=== PATIENT | male | born 1990 | race Caucasian/White ===

== ENCOUNTER 2016-07-04 09:10 | Emergency (ER) | payer OTHER ==
--- NOTE | 2016-07-04 09:24 | ED GI/GU/ABDOMINAL COMPLAINT ---
History of Present Illness General Chief Complaint: Abdominal Pain/Flank Pain Stated Complaint: ABD PAIN Source: patient Exam Limitations: no limitations Vital Signs & Intake/Output Vital Signs & Intake/Output Vital Signs Date Time Temp Pulse Resp B/P Pulse O2 O2 Flow FiO2 Ox Delivery Rate 07/04 1158 97.0 70 18 130/70 98 Room Air 07/04 0915 97.0 64 18 152/88 98 Room Air Allergies Coded Allergies: No Known Allergies (07/04/16) Reconcile Medications Ketorolac Tromethamine 10 MG TABLET 1 TAB PO TID PAIN Tamsulosin HCl (Flomax) 0.4 MG CAP.ER.24H 1 CAP PO DAILY KIDNEY STONE Triage Note: ABD PAIN RADIATING TO MID BACK ON RIGHT SIDE SHARP 10/10 PAIN. Triage Nurses Notes Reviewed? yes Onset: Abrupt Duration: constant Timing: single episode today Quality/Severity: sharpness, severe, stabbing Severity Numbers: 7 Location: left flank Radiation: no radiation HPI: Patient is a 26-year-old male with an unremarkable past medical history of present emergency room stating that this morning patient was woken up with sharp stabbing severe left-sided upper quadrant and flank pain, patient states that he has no history of kidney stones however does have family history of kidney stones. Patient however has been able tolerate by mouth with no change in symptoms last bowel movement was today loose watery stool in nature no blood no melena noted. Patient denies any fever chills current nausea vomiting testicular pain back pain hematuria frequency changes of urination. Patient is brought in by ambulance. (MANDEEP MATA) Past History Travel History Traveled to [place] past 21 day No Medical History Any Pertinent Medical History? none Neurological: NONE EENT: NONE Cardiovascular: NONE Respiratory: NONE Gastrointestinal: NONE Hepatic: NONE Renal: NONE Musculoskeletal: NONE Psychiatric: NONE Endocrine: NONE Blood Disorders: NONE Cancer(s): NONE TITRATOR/Reproductive: NONE Surgical History Surgical History: non-contributory Psychosocial History What is your primary language Scottish Tobacco Use: Current Not Daily ETOH Use: occasional use Illicit Drug Use: denies illicit drug use Family History Hx Contributory? No (MANDEEP MATA) Review of Systems Review of Systems Constitutional: Reports: no symptoms. EENTM: Reports: no symptoms. Respiratory: Reports: no symptoms. Cardiovascular: Reports: no symptoms. GI: Reports: see HPI, abdominal pain. Genitourinary: Reports: no symptoms. Musculoskeletal: Reports: no symptoms. Skin: Reports: no symptoms. Neurological/Psychological: Reports: headache. Hematologic/Endocrine: Reports: no symptoms. Immunologic/Allergic: Reports: no symptoms. All Other Systems: Reviewed and Negative (MANDEEP MATA) Physical Exam Physical Exam General Appearance: no apparent distress, alert Gastrointestinal: normal bowel sounds, soft, MILD LEFT FLANK POINT TENDERNESS, NO RIGHT LOWER QUADRANT PAIN NO RIGHT UPPER QUADRANT PAIN NO PERITONEAL SIGNS Comments: Well-developed well-nourished person in no acute distress HEENT: Normal EENT exam, . Neck: Supple, no lymphadenopathy, normal range of motion without pain or tenderness Back: Nontender, no CVA tenderness. Cardiovascular: Regular rate and rhythms no murmurs rubs or gallops, normal JVP Respiratory: Chest nontender. No respiratory distress.breath sounds clear to auscultation bilaterally Abdomen: Soft, nontender nondistended, no appreciable organomegaly. Normal bowel sounds. No ascites Extremity: No edema, no calf tenderness to palpation, normal and equal pulses. Neuro: Alert oriented x3, motor sensory normal, Skin: No appreciable rash on exposed skin, skin is warm and dry. Psych: Mood and affect is normal, memory and judgment is normal. Core Measures ACS in differential dx? No Severe Sepsis Present: No Septic Shock Present: No (MNADEEP MATA) Progress Differential Diagnosis: AAA, AMI, appendicitis, biliary colic, bowel obstruction , colon cancer, cholecystitis, diverticulitis, epididymitis, esophageal varices, gastritis, hepatitis, hernia, hemorrhoids, ischemic bowel, inflamm bowel dis, orchitis, pancreatitis, prostatitis, peptic ulcer, PUD/GERD, perforated viscous, pyelonephritis, SBO, testicular torsion, ureterolithiasis, urinary retention, urethritis, UTI/pyelo Plan of Care: Orders Procedure Date/time Status URINALYSIS 07/04 926 Complete LIPASE 07/04 926 Complete COMPREHENSIVE METABOLIC PANEL 07/04 926 Complete CBC WITHOUT DIFFERENTIAL 07/04 926 Complete AMYLASE 07/04 926 Complete Laboratory Tests 07/04/16 0949: Anion Gap 9, Estimated GFR > 60, BUN/Creatinine Ratio 17.8, Glucose 112 H, Calcium 9.9, Total Bilirubin 0.8, AST 26, ALT 49, Alkaline Phosphatase 83, Total Protein 7.7, Albumin 4.3, Globulin 3.4, Albumin/Globulin Ratio 1.3, Amylase 68, Lipase 54, CBC w Diff NO MAN DIFF REQ, RBC 5.55, MCV 80.7, MCH 26.8 L, RDW 13.6 , MPV 8.6, Gran % 79.5 H, Lymphocytes % 14.0 L, Monocytes % 4.6, Eosinophils % 1.4, Basophils % 0.5, Absolute Granulocytes 6.5, Absolute Lymphocytes 1.1 L, Absolute Monocytes 0.4, Absolute Eosinophils 0.1, Absolute Basophils 0, PUBS MCHC 33.2 07/04/16 0841: Urine Color YEL, Urine Clarity CLEAR, Urine pH 6.0, Ur Specific [place] 1.020, Urine Protein NEG, Urine Ketones NEG, Urine Nitrite NEG, Urine Bilirubin NEG, Urine Urobilinogen 0.2, Ur Leukocyte Esterase NEG, Ur Microscopic SEDIMENT EXAMINED, Urine RBC 3-5, Urine WBC RARE, Ur Epithelial Cells RARE, Urine Bacteria FEW H, Hyaline Casts RARE H, Urine Mucus FEW, Urine Hemoglobin SMALL H, Urine Glucose NEG 07/04/2016 10:50:16 AM patient was reevaluated and had significant resolution of his pain Patient currently is resting comfortably and had significant resolution of pain however I did discuss CT scan results with Dr. Neal who advised patient to return to emergency room if symptoms worsen and to follow-up with him on Thursday for further evaluation treatment. Patient will comply discharge instructions and had no questions Patient was able tolerate by mouth on discharge (MOSHE HERRERA,MANDEEP) Diagnostic Imaging: Viewed by Me: CT Scan. Radiology Impression: acute abnormality Initial ED EKG: none Comments: PATIENT: MARIA DEL CARMEN MONTGOMERY PRESENT AGE: 26 PATIENT ACCOUNT NO: [id number] : 92 LOCATION: [facility] ORDERING PHYSICIAN: MANDEEP HERRERA SERVICE DATE: 07/04/16 EXAM TYPE: CAT - CT ABD & PELVIS W/O IV CONTRAS EXAMINATION: CT ABDOMEN AND PELVIS WITHOUT CONTRAST CLINICAL INFORMATION: Left flank pain. COMPARISON: None TECHNIQUE: Multidetector volumetric imaging was performed from the superior aspect of the liver through the pubic symphysis. Sagittal and coronal reformatted images were obtained on the technologist's workstation. DLP: 1526 mGy-cm FINDINGS: LUNG BASES: The visualized lung bases are unremarkable. LIVER, GALLBLADDER, AND BILIARY TREE: The liver is normal in size, shape, and attenuation. No focal hepatic lesion or biliary ductal dilatation is present. The gallbladder is unremarkable with no evidence of radiopaque gallstones, gallbladder wall thickening, or obvious pericholecystic inflammatory changes. PANCREAS: Unremarkable. SPLEEN: Unremarkable. ADRENAL GLANDS: Unremarkable. KIDNEYS AND URETERS: The kidneys are normal in size, shape, and attenuation. There is mild fullness of the left collecting system. There is a 0.3 cm calculus in the proximal left ureter. This is at the level of the L4 vertebral body. There may be a duplicated collecting system, with the stone affecting the lower pole moiety. No right-sided obstruction. There are multiple right-sided calculi. The largest are seen at the lower pole, with adjacent 0.3 cm and 0.2 cm calculi, 16 cm from the posterior axillary line. There are additional 0.1 cm lower and midpole calculi. BLADDER: Unremarkable. GASTROINTESTINAL TRACT: The stomach and small bowel are unremarkable. No dilated loops of bowel or evidence of obstruction. Normal appendix. No colonic wall thickening or inflammatory changes. No free air or free fluid. ABDOMINAL WALL: No significant hernia is appreciated. LYMPH NODES: Normal. VASCULAR: Unremarkable. PELVIC VISCERA: The prostate and seminal vesicles are unremarkable. OSSEOUS STRUCTURES: Unremarkable. IMPRESSION: 0.3 cm proximal left ureteral calculus with mild dilatation of the collecting system. 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 Additional nonobstructing right renal calculi. DICTATED BY: RIO VELARDE,ATA DATE/TIME DICTATED:07/04/16 / 1048 (MANDEEP MATA) Departure Departure Disposition: HOME OR SELF CARE Condition: Stable Clinical Impression Primary Impression: Calculus of left kidney Referrals: RIANA NEAL MD Additional Instructions: As discussed please follow-up on Thursday if symptoms continue to urologist Dr. Neal for further evaluation treatment. Begin the prescription ketorolac for pain and inflammation if needed and begin the prescription of Flomax as directed. If symptoms worsen return to emergency room. Pharmacy Departure Forms: Customer Survey General Discharge Information Prescriptions: Current Visit Scripts Ketorolac Tromethamine 1 TAB PO TID #15 TAB Tamsulosin HCl (Flomax) 1 CAP PO DAILY #15 CAP (MANDEEP MATA) PA/INSTITUTIONAL RESEARCH COORDINATOR Co-Sign Statement Statement: ED Attending supervision documentation- [] I saw and evaluated the patient. I have also reviewed all the pertinent lab results and diagnostic results. I agree with the findings and the plan of care as documented in the PA's/INSTITUTIONAL RESEARCH COORDINATOR's documentation. [X] I have reviewed the ED Record and agree with the PA's/INSTITUTIONAL RESEARCH COORDINATOR's documentation. [] Additions or exceptions (if any) to the PAs/INSTITUTIONAL RESEARCH COORDINATOR's note and plan are summarized below: [] (IVANA VELARDE,DILEEP)
[2016-07-04 10:03] LABS: ABSOLUTE BASOPHIL COUNT 0 /CUMM (0.0-0.2); ABSOLUTE EOSINOPHIL COUNT 0.1 /CUMM (0.0-0.7); ABSOLUTE GRANULOCYTE CT 6.5 /CUMM (1.4-6.5); ABSOLUTE LYMPH COUNT 1.1 /CUMM (1.2-3.4); ABSOLUTE MONOCYTE COUNT 0.4 /CUMM (0.10-0.60); BASOPHIL % 0.5 % (0.0-2.0); EOSINOPHIL % 1.4 % (0-5); GRANULOCYTE % 79.5 % (42.2-75.2); HEMATOCRIT 44.8 % (42-52); MEAN CORPUSCULAR HGB 26.8 PG (27.0-31.0); MEAN CORPUSCULAR HGB CONC 33.2 G/DL (33.0-37.0); MEAN CORPUSCULAR VOLUME 80.7 FL (80.0-94.0); MEAN PLATELET VOLUME 8.6 FL (7.4-10.4); PLATELET COUNT 205 /CUMM (130-400); RBC DISTRIBUTION WIDTH 13.6 % (11.5-14.5); RED BLOOD CELL CT 5.55 /CUMM (4.70-6.10); WHITE BLOOD CELL COUNT 8.2 /CUMM (4.8-10.8)
--- NOTE | 2016-07-04 10:58 | CT SCAN REPORT ---
EXAMINATION: CT ABDOMEN AND PELVIS WITHOUT CONTRAST CLINICAL INFORMATION: Left flank pain. COMPARISON: None TECHNIQUE: Multidetector volumetric imaging was performed from the superior aspect of the liver through the pubic symphysis. Sagittal and coronal reformatted images were obtained on the technologist's workstation. DLP: 1526 mGy-cm FINDINGS: LUNG BASES: The visualized lung bases are unremarkable. LIVER, GALLBLADDER, AND BILIARY TREE: The liver is normal in size, shape, and attenuation. No focal hepatic lesion or biliary ductal dilatation is present. The gallbladder is unremarkable with no evidence of radiopaque gallstones, gallbladder wall thickening, or obvious pericholecystic inflammatory changes. PANCREAS: Unremarkable. SPLEEN: Unremarkable. ADRENAL GLANDS: Unremarkable. KIDNEYS AND URETERS: The kidneys are normal in size, shape, and attenuation. There is mild fullness of the left collecting system. There is a 0.3 cm calculus in the proximal left ureter. This is at the level of the L4 vertebral body. There may be a duplicated collecting system, with the stone affecting the lower pole moiety. No right-sided obstruction. There are multiple right-sided calculi. The largest are seen at the lower pole, with adjacent 0.3 cm and 0.2 cm calculi, 16 cm from the posterior axillary line. There are additional 0.1 cm lower and midpole calculi. BLADDER: Unremarkable. GASTROINTESTINAL TRACT: The stomach and small bowel are unremarkable. No dilated loops of bowel or evidence of obstruction. Normal appendix. No colonic wall thickening or inflammatory changes. No free air or free fluid. ABDOMINAL WALL: No significant hernia is appreciated. LYMPH NODES: Normal. VASCULAR: Unremarkable. PELVIC VISCERA: The prostate and seminal vesicles are unremarkable. OSSEOUS STRUCTURES: Unremarkable. IMPRESSION: 0.3 cm proximal left ureteral calculus with mild dilatation of the collecting system. 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 Additional nonobstructing right renal calculi.
[2016-07-04] MEDS ORDERED: KETOROLAC TROME10 M1 PO (11:40)
[2016-07-04] MEDS ORDERED: FLOMAX0.4 M1 PO (11:40)
[2016-07-04 11:58] VITALS: BP 130/70
[2016-07-05] MEDS ORDERED: PERCOCET 5-3251 EACH PO (02:41)
== END 2016-07-04 12:02 ==
LOC: ERH 09:10
PROVIDERS: Physician Assistant
DX: N20.0 Calculus of kidney (principal)
CPT/HCPCS: 74176; 81001; 96372; J1885

== ENCOUNTER 2016-07-04 22:29 | Emergency (ER) | payer OTHER ==
[~2016-07-04] VITALS: Ht 152.4 cm; Wt 131.5 kg
[~2016-07-04 22:29] MED LIST: FLOMAX0.4 M1 PO; KETOROLAC TROME10 M1 PO
--- NOTE | 2016-07-04 23:32 | ED GI/GU/ABDOMINAL COMPLAINT ---
History of Present Illness General Chief Complaint: General Adult Stated Complaint: SEEN TODAY DX WITH KIDNEY STONES PT STILL W/PAIN Source: patient, old records Exam Limitations: no limitations Vital Signs & Intake/Output Vital Signs & Intake/Output Vital Signs Date Time Temp Pulse Resp B/P Pulse O2 O2 Flow FiO2 Ox Delivery Rate 07/05 0049 97.0 76 18 140/95 95 Room Air 07/04 2248 98.2 82 18 135/87 97 Room Air ED Intake and Output 07/05 0000 07/04 1200 Intake Total 1000 Output Total Balance 1000 Intake, IV 1000 Patient 290 lb Weight Allergies Coded Allergies: No Known Allergies (07/04/16) Triage Note: RECEIVED 26 YO MALE HERE THIS AM AND DX JOYCE MULTIPLE KIDNEY STONES, ONE ON LEFT, 2 ON THE RIGHT. PT REPORTS WORSENING PAIN, UNABLE TO TOLERATE PAIN. PT PRESCRIBED TORADOL AND FLOMAX Triage Nurses Notes Reviewed? yes Onset: Abrupt Duration: intermittent, waxing and waning Timing: recent history Quality/Severity: aching, moderate, sharpness, severe Severity Numbers: 8 Location: left flank, left lower quadrant Radiation: LLQ Activities at Onset: none Prior Abdominal Problems: similar symptoms No Modifying Factors: none Associated Symptoms: nausea HPI: 26-year-old male with history of kidney stones Zentz the ER with his mother for evaluation. He was seen earlier today for the same at which a manic CAT scan showing a proximal 3 mm kidney stone on the left side. He states the pain was controlled after being discharged home and nap however since waking up he has had persistent severe throbbing pain to the left side. No fever chills nausea vomiting or urinary symptoms. He's taken his Toradol and Flomax at home without improvement (TENA HERRERA,MANDEEP) Reconcile Medications Ketorolac Tromethamine 10 MG TABLET 1 TAB PO TID PAIN Oxycodone HCl/Acetaminophen (Percocet 5-325 MG Tablet) 5 MG-325 MG TABLET 1-2 TAB PO Q6P PRN pain Tamsulosin HCl (Flomax) 0.4 MG CAP.ER.24H 1 CAP PO DAILY KIDNEY STONE (ILIANA VELARDE,JOSE Lozano) Past History Travel History Traveled to [place] past 21 day No Medical History Any Pertinent Medical History? 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 No (MANDEEP AMBROSIO) Review of Systems Review of Systems Constitutional: Reports: see HPI. All Other Systems: Reviewed and Negative Comments Review of systems: See HPI, All other systems negative. Constitutional, no chills no fever, no malaise HEENT: No visual changes no sore throat no congestion Cardiovascular: No chest pain , no palpitation Skin, no jaundice no rashes, no change in skin Respiratory: No dyspnea no cough no sputum GI: No nausea no vomiting, no diarrhea, : No dysuria, No urgency, frequency Muscle skeletal: No joint pain, no joint swelling, no back pain, no neck pain, Neurologic: No numbness no headache Psych: No stress Heme/endocrine: No bruising no bleeding Immunology: No lymphadenopathy (MANDEEP AMBROSIO) Physical Exam Physical Exam General Appearance: well developed/nourished, alert, awake Gastrointestinal: soft, non-tender Comments: Well-developed well-nourished person in no acute distress HEENT: Normal EENT exam; PERRL, EOMI, HEAD is atraumatic. moist mucous membranes. Neck: Supple, normal range of motion Back: Nontender, no CVA tenderness. Full range of motion Cardiovascular: Regular rate and rhythms no murmurs Respiratory: . No respiratory distress. Patient speaking in full complete sentences. Breath sounds clear to auscultation bilaterally: NO W/R/R Abdomen: Soft, nontender nondistended, no appreciable organomegaly. Normal bowel sounds. No rebound/guarding, Extremity: No edema, full range of motion of extremities Neuro: Alert oriented x3, motor sensory normal, There were no obvious focal neurologic abnormalities. Skin: No appreciable rash on exposed skin, skin is warm and dry. Psych: Mood and affect is normal, memory and judgment is normal. Core Measures ACS in differential dx? No Severe Sepsis Present: No Septic Shock Present: No (MANDEEP AMBROSIO) Progress Differential Diagnosis: ureterolithiasis, UTI/pyelo Plan of Care: Orders Procedure Date/time Status URINALYSIS 07/05 16 Complete Laboratory Tests 07/05/16 0014: Urine Color YEL, Urine Clarity CLEAR, Urine pH 6.0, Ur Specific [place] 1.025, Urine Protein NEG, Urine Ketones NEG, Urine Nitrite NEG, Urine Bilirubin NEG, Urine Urobilinogen 0.2, Ur Leukocyte Esterase NEG, Ur Microscopic EXAM NOT REQUIRED, Urine Hemoglobin NEG, Urine Glucose NEG Old records including patient's earlier CAT scan which was performed here lab results reviewed Patient medicated morphine 4 IV IV fluids we'll continue to monitor Patient reports no improvement in symptoms with morphine and Dilaudid 1 mg IV ordered 07/05/2016 12:16:45 AM on repeat evaluation patient reports symptoms have improved Case discussed with and signed out to Dr. Aquino at 1 AM pending repeat evaluation , KUB x-ray IMPRESSION: 0.3 cm proximal left ureteral calculus with mild dilatation of the collecting system. 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 Additional nonobstructing right renal calculi. 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 (ILIANA VELARDE,JOSE Lozano) Departure Departure Disposition: HOME OR SELF CARE Condition: Stable Clinical Impression Primary Impression: Kidney stone Referrals: PATIENT HAS NO PRIMARY CARE DR (PCP/Family) RIANA NEAL MD Additional Instructions: Follow-up with urologist Dr. Neal Thursday. Return anytime sooner with any concerns or worsening of symptoms. Departure Forms: Customer Survey General Discharge Information (MANDEEP AMBROSIO) Departure Prescriptions: Current Visit Scripts Oxycodone HCl/Acetaminophen (Percocet 5-325 MG Tablet) 1-2 TAB PO Q6P PRN pain #16 TAB (JOSE AQUINO MD)
--- NOTE | 2016-07-05 02:37 | RADIOLOGY REPORT ---
EXAMINATION: XR KIDNEYS, URETER, BLADDER CLINICAL INDICATION: Left kidney stone. COMPARISON: CT scan of the abdomen and pelvis 07/04/2016. TECHNIQUE: A single AP view of the abdomen and pelvis was performed. FINDINGS: There has been no substantial change in the position of the calculus within the left ureter when compared to the recent CT scan of abdomen and pelvis from 07/04/2016. Specifically there is a small calculus located lateral to the L4 vertebral body. A few nonobstructive calculi are visualized within the lower pole calyces of the right kidney. There is no acute osseous finding. Bowel gas pattern is unremarkable. IMPRESSION: No substantial change in the position of the left ureteral calculus at the level of L4.
[2016-07-05] MEDS ORDERED: PERCOCET 5-3251 EACH PO (02:41)
[2016-07-05 03:10] VITALS: BP 121/73
== END 2016-07-05 03:20 ==
LOC: ERH 22:29
DX: N20.0 Calculus of kidney (principal)
CPT/HCPCS: 74000; 81003; 96374; 96375; J2405